=== PATIENT | male | born 1985 | race Caucasian/White ===

== ENCOUNTER 2020-07-30 22:32 | Emergency (ER) | payer BC ==
[~2020-07-30] VITALS: Ht 193 cm; Wt 104.3 kg
--- NOTE | 2020-07-30 22:40 | NUR ---
Placed in room 6 .
[2020-07-30 22:45] VITALS: BP_SYST 136
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
--- NOTE | 2020-07-30 22:48 | NUR ---
Dr. Miranda at bedside for MSE
--- NOTE | 2020-07-30 22:56 | NUR ---
Pt NIRAV to radiology with tech
[2020-07-30] MEDS ORDERED: HYDR-3917 PO (22:57)
[2020-07-30] MEDS ORDERED: IBUP-1971 PO (22:57)
--- NOTE | 2020-07-30 23:00 | NUR ---
Pt back from xray
[2020-07-30] MEDS: KETOROLAC TROMETHAMINE 60 MG/2 ML VIAL IM ONE (23:04)
[2020-07-30 23:20] VITALS: BP_SYST 136
--- NOTE | 2020-07-30 23:20 | NUR ---
Patient given written and verbal discharge instructions and verbalizes understanding. ER MD discussed with patient the results and treatment provided. Patient in stable condition. ID arm band removed. Rx of NORCO, MOTRIN given. Patient educated on pain management and to follow up with PMD. Pain Scale 5/10. Opportunity for questions provided and answered. Medication side effect fact sheet provided.
== END 2020-07-30 23:20 | disposition home or self-care (01) ==
LOC: SED 22:32
DX: M25.512 Pain in left shoulder (principal); F12.90 Cannabis use, unspecified, uncomplicated; Z90.49 Acquired absence of other specified parts of digestive tract; V49.9XXA Car occupant (driver) (passenger) injured in unspecified traffic accident, initial encounter; Y93.89 Activity, other specified; Y92.413 State road as the place of occurrence of the external cause; Y99.8 Other external cause status
CPT/HCPCS: 73030; 96372; 99283; J1885